=== PATIENT | male | born 1990 | race Hispanic/Latino ===

== ENCOUNTER 2023-01-12 12:44 | Emergency (ER) | payer SELFPAY ==
[2023-01-12] MEDS ORDERED: Morphine 4 MG/ML VIAL ONE ×2 (13:11→15:22)
[2023-01-12] MEDS ORDERED: Morphine 2 MG/ML VIAL ONE (13:11)
[2023-01-12] MEDS ORDERED: Ketorolac Tromethamine 30 MG/ML VIAL ONE (15:22)
== END 2023-01-12 15:30 | disposition home or self-care (01) ==
LOC: CSHERS 12:44
DX: S32.010A Wedge compression fracture of first lumbar vertebra, initial encounter for closed fracture (principal); W11.XXXA Fall on and from ladder, initial encounter
CPT/HCPCS: 72128; 72131; 96374; 96375; 96376; J1885; J2270; J2272